=== PATIENT | female | born 1960 | race Caucasian/White ===

== ENCOUNTER 2017-02-15 19:54 | Emergency (ER) | payer OTHER ==
[2017-02-15 21:32] LABS: Hematocrit 42 % (35-47); Hemoglobin 13.4 g/dl (12.0-16.0); Mean Corpuscular HGB Conc 32 g/dl (31-36); Mean Corpuscular Hemoglobin 30 pg (27-31); Mean Corpuscular Volume 92 fL (80-97); Mean Platelet Volume 8 um3 (7.4-10.4); Red Blood Count 4.54 10^6/ul (4.0-5.4); Red Cell Distribution Width 15 % (10.5-15); White Blood Count 6.8 10^3/ul (3.5-10.8)
--- NOTE | 2017-02-15 21:52 | ED ---
Yu Dumont Rebecca, scribed for Jaz Cleary MD on 02/15/17 at 2101 . Throat Pain/Nasal Congestion - HPI Summary HPI Summary: Pt is a 56 y/o F who presents to ED c/o epistaxis. Sx began suddenly at 1730 today and has been constant since onset, resolving at approximately 2054. Sx aggravated by nothing, alleviated by compression and spontaneous resolution. Denies any nasal sores or bruising. Reports similar, but less severe, episodes weekly. Does not take any blood thinners or ASA. Denies a repeat catheterization. SHx nasal cauterization 2 years ago. PCP is Dr. Eddy. - History of Current Complaint Chief Complaint: EDEpistaxis Time Seen by Provider: 02/15/17 20:46 Hx Obtained From: Patient Onset/Duration: Sudden Onset, Lasting Hours - 3.5 hours, Resolved Associated Signs And Symptoms: Positive: Negative - Allergies/Home Medications Allergies/Adverse Reactions: Allergies Allergy/AdvReac Type Severity Reaction Status Date / Time Adhesive Tape Allergy Mild Rash Verified 02/15/17 20:03 Ciprofloxacin Allergy Itching Verified 02/15/17 20:03 PMH/Surg Hx/FS Hx/Imm Hx Endocrine/Hematology History: Reports: Hx Diabetes - borderline Cardiovascular History: Reports: Hx Hypertension - NOT ON MEDS Denies: Hx Pacemaker/ICD Musculoskeletal History: Reports: Hx Back Problems - chronic lower bacl pain Sensory History: Denies: Hx Hearing Aid Neurological History: Reports: Hx Migraine Psychiatric History: Reports: Hx Depression Denies: Hx Panic Disorder - Cancer History Cancer Type, Location and Year: ENDOMETRIAL CANCER, HYSTERECTOMY AND BSO 2004, I AND D RIGHT BREAST ABSCESS,LEFT AND RIGHT SHOULDER SURGERIES, BILATERAL CARPAL TUNNEL SURGERY - Surgical History Surgery Procedure, Year, and Place: RIGHT FOOT SURGERY(pin put in and removed 1 yr later), BILATERAL HAND SURGERY CARPAL TUNNEL RELEASE, HYSTERECTOMY, BILATERAL SHOULDER SURGERY(LT SHOULDER FRACTURE FRAGMENTS//RT SHOULDER MUSCLE REPAIR) Infectious Disease History: No Infectious Disease History: Denies: Traveled Outside the [place] in Last 30 Days - Family History Known Family History: Positive: Hypertension, Diabetes - Social History Lives: With Family - Daughter Alcohol Use: None Substance Use Type: Reports: None Hx Tobacco Use: No Smoking Status (MU): Never Smoked Tobacco Review of Systems Positive: Epistaxis - resolved, Other - Denies any nasal sores Negative: Bruising All Other Systems Reviewed And Are Negative: Yes Physical Exam - Summary Physical Exam Summary: General: Well appearing, no pain distress Skin: Warm, Skin Color Reflects Adequate Perfusion, Dry Eyes: EOMI, JAYLON ENT: Pharynx normal, TMs normal. Slight amount of dried blood in the septum. Neck: Supple, nontender Respiratory: CTA, breath sounds present, no rhonchi, no wheezes, no rales Cardiovascular: RRR, no murmur, no rub, no gallop Musculoskeletal: DANYELLE, No edema Neuro: Sensory/motor intact, A&Ox3, CN intact 2-12 Psych: Affect/mood appropriate Triage Information Reviewed: Yes Vital Signs On Initial Exam: Initial Vitals Temp Pulse Resp BP Pulse Ox 99.4 F 90 12 149/90 96 02/15/17 20:00 02/15/17 20:00 02/15/17 20:00 02/15/17 20:00 02/15/17 20:00 Vital Signs Reviewed: Yes Diagnostics - Vital Signs Vital Signs Temp Pulse Resp BP Pulse Ox 02/15/17 20:00 99.4 F 90 12 149/90 96 - Laboratory Lab Results: Lab Results 02/15/17 02/15/17 Range/Units 21:20 21:20 WBC 6.8 (3.5-10.8) 10^3/ul RBC 4.54 (4.0-5.4) 10^6/ul Hgb 13.4 (12.0-16.0) g/dl Hct 42 (35-47) % MCV 92 (80-97) fL MCH 30 (27-31) pg MCHC 32 (31-36) g/dl RDW 15 (10.5-15) % Plt Count 270 (150-450) 10^3/ul MPV 8 (7.4-10.4) um3 Neut % (Auto) 58.9 (38-83) % Lymph % (Auto) 30.5 (25-47) % Laporte % (Auto) 6.5 (1-9) % Eos % (Auto) 3.5 (0-6) % Baso % (Auto) 0.6 (0-2) % Absolute Neuts (auto) 4.0 (1.5-7.7) 10^3/ul Absolute Lymphs (auto) 2.1 (1.0-4.8) 10^3/ul Absolute Monos (auto) 0.4 (0-0.8) 10^3/ul Absolute Eos (auto) 0.2 (0-0.6) 10^3/ul Absolute Basos (auto) 0 (0-0.2) 10^3/ul Absolute Nucleated RBC 0 10^3/ul Nucleated RBC % 0 INR (Anticoag Therapy) 0.90 (0.89-1.11) Result Diagrams: 02/15/17 21:20 Lab Statement: Any lab studies that have been ordered have been reviewed, and results considered in the medical decision making process. EENT Course/Dx - Course Course Of Treatment: pt with frequent nose bleeds one per week this one last several hours more than last. No areas seen to cauterize at this time, labs done showing normal cbc and inr. Pt referred to ent, of note pt not on blood thinners - Diagnoses Provider Diagnoses: Epistaxis Discharge - Discharge Plan Condition: Stable Disposition: HOME Patient Education Materials: Nosebleed (ED) Referrals: Jarod Guevara MD [Primary Care Provider] - 3 Days (Follow up with your primary care physician in the next 3 days. ) Additional Instructions: Return to ED for any returning or worsening symptoms. The documentation as recorded by the Yu rush Rebecca accurately reflects the service I personally performed and the decisions made by me, Jaz Cleary MD.
[2017-02-15 22:00] VITALS: BP 151/95
== END 2017-02-15 21:50 | disposition home or self-care (01) ==
LOC: ED 19:54
DX: R04.0 Epistaxis (principal)
CPT/HCPCS: 36415; 85025; 85610; 99282

== ENCOUNTER 2018-01-13 13:35 | Emergency (ER) | payer OTHER ==
--- OUTSIDE RECORDS SUMMARY | 2018-01-13 14:27 | XMS REPORT ---
:1960 External Reference #:[id number] Author Organization [place] [facility] Address [address] [place] [address] Phone [phone] Care Team Providers Name Role Phone Jarod Guevara MD Care Team Information Rn Interventional Unavailable Jarod Guevara MD Primary Care Physician Unavailable Payers Type Date Identification Numbers Payment Provider Subscriber Commercial Policy Number: [id number] [employer] Brianne Dickerson PayID: [id number] [address] [address] [place] [address] Problems Date Description Provider Status Onset: 04/16/2017 Difficulty breathing Lizbeth Tuttle MD Active Onset: 04/16/2017 Benign paroxysmal positional vertigo Lizbeth Tuttle MD Active Onset: 04/16/2017 Chronic tension-type headache Lizbeth Ttutle MD Active Onset: 11/25/2015 Late effect of fracture of spine Homero Rutledge M.D. Active AND/OR trunk without spinal cord lesion Family History Date Family Member(s) Problem(s) Comments General Heart Disease General Diabetes General Cancer Father Heart Disease Father due to COPD () Father Chronic Obstructive Pulmonary Disease (COPD) Mother Valve replacements X2 Open heart surgery Siblings 4 2 , 2 sisters living Social History Type Date Description Comments Marital Status Lives With Alone Occupation Disabled depression Cigarette Use Never Smoked Cigarettes ETOH Use Denies alcohol use Smoking Patient has never smoked Recreational Drug Use Denies Drug Use Daily Caffeine Consumes on average 24oz of soda per day Exercise Type/Frequency Does not exercise Allergies, Adverse Reactions, Alerts Date Description Reaction Status Severity Comments 10/28/2014 Latex active 02/27/2017 Ciprofloxacin active 10/07/2017 Lisinopril active 10/28/2014 NKDA inactive Medications Medication Date Status Form Strength Qnty SIG Indications Ordering Provider Trazodone HCL 00/00/ Active 100mg 2 hs Unknown 0000 Methocarbamol / Active 500mg 1 q 4 Unknown 0000 hours prn Gabapentin / Active 300mg 2-3 hs Unknown 0000 or prn Centrum Silver / Active Tablets Adult 50 1 by Unknown Adult 50+ 0000 mouth every day Montelukast / Active Tablets 10mg 1 by Unknown Sodium 0000 mouth every day Meloxicam / Active Tablets 15mg 1 by Unknown 0000 mouth every day Alendronate / Active Tablets 70mg 1 tablet Unknown Sodium 0000 once weekly. Omeprazole / Active Capsules 20mg [address] mouth every day Duloxetine HCL / Active Caps DR 60mg Take 2 Unknown 0000 Part Capsule Daily Duloxetine HCL / Active Caps DR 30mg 1 by Unknown 0000 Part mouth every day Metoprolol / Active Tablets 50mg 2 by Unknown Tartrate 0000 mouth a day Hydrocodone 10/28/ Hx Tablets 5-300mg 25tabs 1-2 by Tiffani Bitartrate/Acetam 2015 - mouth Carroll, inophen 11/25/ q8hr as M.D. 2016 needed pain Has List But Did / Hx Unknown Not Bring Nor 0000 - Remember Any Meds 2015 Sertraline HCL 00/ Hx 100mg Unknown 2015 Naprosyn 00/ Hx 500mg Unknown 2015 Topiramate / Hx 100mg 1 qd Unknown - 2016 Relpax / Hx Unknown - 2015 Levocetirizine / Hx 5mg 1 qd Unknown Dihydrochloride - 2016 Topiramate / Hx Tablets 200mg 1 by Unknown 0000 - mouth a 2016 Duloxetine HCL 00/00/ Hx Caps DR 60mg 1 by Unknown 0000 - Part mouth 2016 day Duloxetine HCL 00/ Hx Caps DR 30mg 1 by Unknown 0000 - Part mouth 2016 day Naproxen / Hx Tablets 500mg 1 tablet Unknown 0000 - with by 2017 mouth twice a day Medications Administered in Office Medication Date Status Form Strength Qnty SIG Indications Ordering Provider Depomedrol Administered Injection Tiffani 40MG 017 Blaise Carroll Depomedrol Administered Injection Denisa 40MG 017 Marino RPA-C Depomedrol Administered Injection Tiffani 40MG 017 Blaise Carroll Depomedrol Administered Injection Tiffani 80MG 014 Blaise Carroll Depomedrol Administered Injection Tiffani 80MG 013 Blaise Carroll Vital Signs Date Vital Result Comment 12/17/2017 Height 64.8 inches 5'4.80" Weight 304.00 lb Heart Rate 70 /min BP Systolic Sitting 122 mmHg BP Diastolic Sitting 86 mmHg Respiratory Rate 16 /min O2 % BldC Oximetry 97 % BMI (Body Mass Index) 50.9 kg/m2 10/07/2017 Height 64.8 inches 5'4.80" Weight 307.00 lb Heart Rate 76 /min BP Systolic Sitting 124 mmHg BP Diastolic Sitting 90 mmHg Respiratory Rate 14 /min O2 % BldC Oximetry 96 % BMI (Body Mass Index) 51.4 kg/m2 Neck Circumference in inches 17 07/24/2017 Height 64.8 inches 5'4.80" Weight 309.50 lb Heart Rate 88 /min BP Systolic 134 mmHg BP Diastolic 86 mmHg BMI (Body Mass Index) 51.8 kg/m2 07/08/2017 Height 64.8 inches 5'4.80" Weight 308.00 lb BP Systolic 126 mmHg BP Diastolic 84 mmHg Respiratory Rate 20 /min Body Temperature 97.7 F Pain Level 9 BMI (Body Mass Index) 51.6 kg/m2 04/16/2017 Height 64.8 inches 5'4.80" Weight 307.00 lb Heart Rate 88 /min BP Systolic Sitting 146 mmHg BP Diastolic Sitting 90 mmHg Respiratory Rate 16 /min BMI (Body Mass Index) 51.4 kg/m2 04/10/2017 Height 64.8 inches 5'4.80" Weight 308.00 lb BP Systolic 144 mmHg BP Diastolic 79 mmHg Respiratory Rate 15 /min Pain Level 1 BMI (Body Mass Index) 51.6 kg/m2 02/27/2017 Height 64.8 inches 5'4.80" Weight 308.00 lb Heart Rate 89 /min BP Systolic 137 mmHg BP Diastolic 84 mmHg Body Temperature 98.3 F Pain Level 6 BMI (Body Mass Index) 51.6 kg/m2 11/25/2015 Height 65 inches 5'5" Weight 290.00 lb BP Systolic Sitting 138 mmHg BP Diastolic Sitting 94 mmHg Pain Level 8 BMI (Body Mass Index) 48.3 kg/m2 11/25/2014 Height 65 inches 5'5" Heart Rate 91 /min BP Systolic 158 mmHg BP Diastolic 96 mmHg 10/28/2014 Height 65 inches 5'5" Weight 318.00 lb Heart Rate 80 /min BP Systolic 179 mmHg BP Diastolic 89 mmHg BMI (Body Mass Index) 52.9 kg/m2 Results Description No Information Procedures Date CPT Code Description Status 10/11/2017 03304 Polysomnography Sleep Staging 4+ Parameters W/Cpap Completed 07/08/2017 Inject/Drain Joint/Bursa Small Completed 04/10/2017 45301 Inject Tendon Sheath Or Ligament Aponeurosis Eg Plantar Completed Fascia 02/27/2017 89353 Inject Tendon Sheath Or Ligament Aponeurosis Eg Plantar Completed Fascia 10/28/2014 71948 Rad Exam; Wrist Limited, 2 Views Completed 10/29/2013 Inject/Drain Joint/Bursa Small Completed 01/15/2013 49714 Rad Exam; Hand Comp Completed 01/15/2013 Inject/Drain Joint/Bursa Small Completed 05/09/2011 23774 Rad Exam; Both Knees, Standing Ap Completed 05/09/2011 12294 Rad Exam; Knee, Ap&L Completed Encounters Type Date Location Provider CPT E/M Dx Office Visit 12/17/2017 [facility] Jessica Wilkinson, 42131 G47.33 1:30p [facility] DNP, RN, DEODORIZER OPERATOR-BC Office Visit 10/07/2017 [facility] [place] [address] R06.83 10:15a [facility] E66.01 Office Visit 07/24/2017 4:00p [facility] [address] G44.221 R06.83 Office Visit 04/16/2017 11:00a [place] [address] G44.221 [facility] H81.10 R06.83 Office Visit 02/27/2017 1:00p [facility] Tiffani [place], 46798 M65.352 Of Jose Manuel Welsh Office Visit 11/25/2015 2:00p Neurosurgery Services Homero Rutledge, 35168 M80.88xS Of [facility] Welsh M80.88xA Office Visit 11/25/2014 3:45p [facility] Tiffani [place] 10445 842.00 Of Jose Manuel Welsh Office Visit 10/28/2014 8:45a [facility] Tiffani Carroll 44371 842.00 Of Jose Manuel Welsh 842.00 Office Visit 01/15/2013 2:15p [facility] Tiffani [place] 81988 815.00 Of Jose Manuel Welsh v54.12 719.48 Office Visit 05/09/2011 2:15p [facility] Of Lico Ulrich M.D. 20638 727.09 C.MBobo Plan of Care Future Appointment(s):02/11/2018 2:30 pm - Jessica Wilkinson DNP, RN, KELLY- at [facility]12/17/2017 - Jessica Wilkinson DNP, RN, KELLY- BCG47.33 Obstructive sleep apnea (adult) (pediatric)Comments:moderate sleep apnea with an AHI 20/hour, tRDI 89/hour, matthieu oxygen 86 %.Follow up:6 weeksRecommendations:Sleep apnea to start PAP at 14 cm Review of sleep study in detail. Review of risks of untreated sleep apnea including cardiovascular events: rhythm irregularities, heart attack, stroke; gastro esophageal reflux disease (GERD); diabetes; anxiety, depression; high blood pressure; accidents (machinery and automobile) Recommendation for PAP other treatment modalities NON-PAP including oral appliance/mandibular advancement device, positional strategies , and surgery discussed. Referral for PAPdevice to be sent to [facility] phone: [phone] Equipment appointment will take about 45 minutes, the DME provider will call you within 5 days to set you up for the device. If you do not hear from them call the Sleep Center. The mask will have a 30-day guarantee, if you have mask problems call the DME provider to have a fitting for a different mask. If you have problems with the air pressure call the sleep center and speak to a nurse.
--- NOTE | 2018-01-13 15:45 | RAD ---
HISTORY: Left ankle and foot pain COMPARISONS: March 13, 2013 VIEWS: 6, Frontal, lateral, and oblique views of the left ankle and of the left foot FINDINGS: BONE DENSITY: Normal. BONES: There is no displaced fracture. There are posterior and plantar calcaneal enthesophytes. JOINTS: There is mild osteoporosis of the tibiotalar articulation. ALIGNMENT: There is no dislocation. SOFT TISSUES: Unremarkable. OTHER FINDINGS: None. IMPRESSION: 1. HEEL SPURS 2. MILD OSTEOARTHRITIS. 3. NO ACUTE OSSEOUS INJURY TO THE LEFT FOOT OR LEFT ANKLE. IF SYMPTOMS PERSIST, RECOMMEND REPEAT IMAGING.
--- NOTE | 2018-01-13 16:22 | ED ---
Mariana Dumont Julia, scribed for Amos Ferguson on 01/13/18 at 1522 . Lower Extremity - HPI Summary HPI Summary: This patient is a 57 year old F presenting to [facility] with a chief complaint of left ankle and foot pain after walking home, across the street, from the hospital yesterday. The patient rates the pain 9/10 in severity. - History of Current Complaint Chief Complaint: EDExtremityLower Stated Complaint: LT HEEL PAIN Time Seen by Provider: 01/13/18 15:14 Hx Obtained From: Patient Mechanism Of Injury: Unknown Onset of Pain: Prior to Arrival Onset/Duration: Still Present Pain Intensity: 9 Pain Scale Used: 0-10 Numeric Timing: Constant Location: Is Discrete @ - L lateral ankle and foot Associated Signs And Symptoms: Positive: Negative Aggravating Factor(s): Ambulation - Allergies/Home Medications Allergies/Adverse Reactions: Allergies Allergy/AdvReac Type Severity Reaction Status Date / Time Adhesive Tape Allergy Rash Verified 01/13/18 13:53 ciprofloxacin [From Cipro] Allergy Rash Verified 01/13/18 13:53 lisinopril Allergy Rash And Verified 01/13/18 13:53 Itching PMH/Surg Hx/FS Hx/Imm Hx Endocrine/Hematology History: Denies: Hx Diabetes - borderline Cardiovascular History: Denies: Hx Hypertension - NOT ON MEDS, Hx Pacemaker/ICD Musculoskeletal History: Reports: Hx Back Problems - chronic lower bacl pain Sensory History: Denies: Hx Hearing Aid Neurological History: Reports: Hx Migraine Psychiatric History: Reports: Hx Depression Denies: Hx Panic Disorder - keeps eyes closed - Cancer History Cancer Type, Location and Year: ENDOMETRIAL CANCER, HYSTERECTOMY AND BSO 2004, I AND D RIGHT BREAST ABSCESS,LEFT AND RIGHT SHOULDER SURGERIES, BILATERAL CARPAL TUNNEL SURGERY - Surgical History Surgery Procedure, Year, and Place: 2 shoulder, carpel tunnel both, 2 foot surgeries, female cancer hyster.(complications) scratch infection under breast, throat. PT IS A DIFFICULT STICK- NEEDED U/S IV ACCESS, NEEDS TO BE HERE EARLY & SET UP FOR U/S IV TEAM NEXT TIME SHE IS SCHEDULED FOR CONTRAST - Immunization History Date of Influenza Vaccine: 07/2017 Immunizations Up to Date: Yes Infectious Disease History: No Infectious Disease History: Denies: Traveled Outside the [place] in Last 30 Days - Family History Known Family History: Positive: Hypertension, Diabetes - Social History Alcohol Use: None Substance Use Type: Reports: None, Prescribed Hx Tobacco Use: No Smoking Status (MU): Never Smoked Tobacco Review of Systems Negative: Fever Positive: Myalgia - L ankle/foot All Other Systems Reviewed And Are Negative: Yes Physical Exam - Summary Physical Exam Summary: Appearance: Well appearing, no pain distress Skin: warm, dry, reflects adequate perfusion Head/face: normal Eyes: EOMI, JAYLON ENT: normal Neck: supple, non-tender Respiratory: CTA, breath sounds present Cardiovascular: RRR, pulses symmetrical Abdomen: non-tender, soft Bowel: present Musculoskeletal: strength/ROM intact, tenderness to the lateral aspect of the left foot Neuro: normal, sensory motor intact, A&Ox3, no neurological deficits Triage Information Reviewed: Yes Vital Signs On Initial Exam: Initial Vitals Temp Pulse Resp BP Pulse Ox 97.3 F 74 12 141/81 93 01/13/18 13:48 01/13/18 13:48 01/13/18 13:48 01/13/18 13:48 01/13/18 13:48 Vital Signs Reviewed: Yes Diagnostics - Vital Signs Vital Signs Temp Pulse Resp BP Pulse Ox 01/13/18 13:48 97.3 F 74 12 141/81 93 - Laboratory Lab Statement: Any lab studies that have been ordered have been reviewed, and results considered in the medical decision making process. - Radiology L Foot XR Radiology Interpretation Completed By: Radiologist - 1. HEEL SPURS 2. MILD OSTEOARTHRITIS. 3. NO ACUTE OSSEOUS INJURY TO THE LEFT FOOT OR LEFT ANKLE. IF SYMPTOMS PERSIST, RECOMMEND REPEAT IMAGING. ED Physician has reviewed this report. L Ankle XR Radiology Interpretation Completed By: Radiologist - 1. HEEL SPURS 2. MILD OSTEOARTHRITIS. 3. NO ACUTE OSSEOUS INJURY TO THE LEFT FOOT OR LEFT ANKLE. IF SYMPTOMS PERSIST, RECOMMEND REPEAT IMAGING. ED Physician has reviewed this report. Re-Evaluation - Re-Evaluation 1 Re-Evaluation Time: 16:14 Comment: Results discussed with pt. Pt will be discharged. Lower Extremity Course/Dx - Course Course Of Treatment: Patient presents with eft ankle and foot pain after walking home, across the street, from the hospital yesterday. A L ankle and L foot XR are negative for fracture. Raven refuses pain medication, because she already took pain meds today. Patient is referred to an orthopedist and is discharged. - Diagnoses Differential Diagnosis/HQI/PQRI: Positive: Fracture (Closed), Strain Provider Diagnoses: Sprain of left foot Discharge - Sign-Out/Discharge Documenting (check all that apply): Discharge - Discharge Plan Condition: Stable Disposition: HOME Prescriptions: Ibuprofen TAB* [Motrin TAB* 600 MG] 600 mg PO Q8H PRN #20 tab MDD 3 PRN Reason: Pain Patient Education Materials: Ankle Sprain (ED) Referrals: Justin Quinn MD [Medical Doctor] - As Soon As Possible (Follow up with this Orthopedist.) - Billing Disposition and Condition Condition: STABLE Disposition: HOME The documentation as recorded by the Mariana rush Julia accurately reflects the service I personally performed and the decisions made by Phyllis laureano Emmanuel.
[2018-01-13 16:43] VITALS: BP 131/72
== END 2018-01-13 16:40 | disposition home or self-care (01) ==
LOC: ED 13:35
DX: S93.602A Unspecified sprain of left foot, initial encounter (principal); X58.XXXA Exposure to other specified factors, initial encounter; Y93.01 Activity, walking, marching and hiking; Y92.488 Other paved roadways as the place of occurrence of the external cause; M77.32 Calcaneal spur, left foot; M19.072 Primary osteoarthritis, left ankle and foot; R73.03 Prediabetes; G43.909 Migraine, unspecified, not intractable, without status migrainosus; F32.9 Major depressive disorder, single episode, unspecified; Z88.1 Allergy status to other antibiotic agents; Z88.8 Allergy status to other drugs, medicaments and biological substances; Z91.048 Other nonmedicinal substance allergy status
CPT/HCPCS: 99282

== ENCOUNTER 2018-05-01 20:06 | Emergency (ER) | payer OTHER ==
--- OUTSIDE RECORDS SUMMARY | 2018-05-01 20:51 | XMS REPORT ---
:1960 External Reference #:[id number] Author Organization [facility] Address [address] [place] [address] [place] [address] Phone [phone] Care Team Providers Name Role Phone Jarod Guevara MD Care Team Information Interceptor Operator Unavailable Jarod Guevara MD Primary Care Physician Unavailable Payers Type Date Identification Numbers Payment Provider Subscriber Commercial Policy Number: [id number] [employer] Medicaid Brianne Dickerson PayID: [id number] [address] [address] [place] [address] Problems Date Description Provider Status Onset: 11/25/2015 Late effect of fracture of spine Homero Rutledge M.D. 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 ASSISTANT-BC Onset: 01/17/2018 Achilles bursitis Colten Mayer MD Active Onset: 01/17/2018 Plantar fascial fibromatosis Colten Mayer MD Active Onset: 01/17/2018 Peroneal tendinitis Colten Mayer MD Active Family History Date Family Member(s) Problem(s) Comments [...] active 02/27/2017 Ciprofloxacin active 10/07/2017 Lisinopril active 01/17/2018 Tape active 10/28/2014 NKDA inactive Medications Medication Date Status Form Strength Qnty SIG Indications Ordering Provider Trazodone HCL 00/ Active 100mg 2 hs Unknown 0000 Methocarbamol [...] - Remember Any Meds 2015 Sertraline HCL 00/00/ Hx 100mg Unknown - 2015 Naprosyn /00/ Hx 500mg Unknown - 2015 Topiramate 00/ Hx 100mg 1 qd Unknown 0000 - 2016 Relpax 00/ Hx Unknown 0000 - 2015 Levocetirizine / Hx 5mg 1 qd Unknown Dihydrochloride 0000 - 2016 Topiramate / Hx Tablets 200mg 1 by Unknown 0000 - mouth a 2016 Duloxetine HCL / Hx Caps DR 60mg 1 by Unknown 0000 - Part mouth 2016 day Duloxetine HCL / Hx Caps DR 30mg 1 by Unknown 0000 - Part mouth 2016 day Naproxen / Hx Tablets 500mg 1 tablet Unknown 0000 - with food by 2017 mouth twice a day Medications Administered in Office Medication Date Status Form Strength Qnty SIG Indications Ordering Provider Depomedrol Administered Injection Tiffani 40MG 017 Blaise Carroll Depomedrol Administered Injection Denisa 40MG 017 MADELIN Pichardo Depomedrol Administered Injection Tiffani 40MG 017 Blaise Carroll Depomedrol Administered Injection Tiffani 80MG 014 Blaise Carroll Depomedrol Administered Injection Tiffani 80MG 013 Blaise Carroll Vital Signs Date Vital Result Comment 04/16/2018 Height 64 inches 5'4" Heart Rate 77 /min BP Systolic 128 mmHg BP Diastolic 80 mmHg Respiratory Rate 16 /min Body Temperature 98.0 F Pain Level 4 02/14/2018 Height 64 inches 5'4" Weight 305.00 lb Heart Rate 76 /min Respiratory Rate 14 /min Body Temperature 98.9 F BMI (Body Mass Index) 52.3 kg/m2 02/11/2018 Height 64 inches 5'4" Weight 295.00 lb Heart Rate 76 /min BP Systolic Sitting 138 mmHg Lue large cuff BP Diastolic Sitting 84 mmHg Lue large cuff Respiratory Rate 20 /min O2 % BldC Oximetry 96 % On Ra BMI (Body Mass Index) 50.6 kg/m2 01/17/2018 Height 64 inches 5'4" Weight 305.00 lb BP Systolic 134 mmHg BP Diastolic 80 mmHg Respiratory Rate 18 /min Body Temperature 98.4 F Pain Level 8 BMI (Body Mass Index) 52.3 kg/m2 12/17/2017 Height 64.8 inches 5'4.80" Weight 304.00 [...] Procedures Date CPT Code Description Status 10/11/2017 32943 Polysomnography Sleep Staging 4+ Parameters W/Cpap Completed 07/08/2017 Inject/Drain Joint/Bursa Small W/O US Completed 04/10/2017 23233 Inject Tendon Sheath Or Ligament Aponeurosis Eg Plantar Completed Fascia 02/27/2017 10665 Inject Tendon Sheath Or Ligament Aponeurosis Eg Plantar Completed Fascia 10/28/2014 44120 Rad Exam; Wrist Limited, 2 Views Completed 10/29/2013 Inject/Drain Joint/Bursa Small W/O US Completed 01/15/2013 25131 Rad Exam; Hand Comp Completed 01/15/2013 Inject/Drain Joint/Bursa Small W/O US Completed 05/09/2011 96707 Rad Exam; Both Knees, Standing Ap Completed 05/09/2011 73126 Rad Exam; Knee, Ap&L Completed Encounters Type Date Location Provider CPT E/M Dx Office Visit 02/14/2018 2:15p [facility] [address] M76.72 C.M.A. M76.62 M72.2 Office Visit 02/11/2018 2:30p [facility] Jessica Wilkinson 77137 G47.33 Services Of Vanesa MORENO RN, [facility] Z68.43 Office Visit 01/17/2018 1:00p [facility] [place] [address] M76.72 C.M.A. M76.62 M72.2 Office Visit 12/17/2017 1:30p [facility] Jessica Wilkinson 81547 G47.33 Services Of Vanesa MORENO RN, PASTRY ASSISTANT-JORGE LUIS E66.01 Z68.43 Office Visit 10/07/2017 10:15a [facility] [place] [address] R06.83 Services Of Vanesa E66.01 Office Visit 07/24/2017 4:00p [facility] [address] G44.221 R06.83 Office Visit 04/16/2017 11:00a [facility] [place] [address] G44.221 Services Of Vanesa H81.10 R06.83 Office Visit 02/27/2017 1:00p [facility] Services Tiffani Carroll 20108 M65.352 Of C.M.A. MKelly Office Visit 11/25/2015 2:00p Neurosurgery Services Homero Rutledge, 94498 M80.88xS Of Vanesa Welsh M80.88xA Office Visit 11/25/2014 3:45p [facility] Services Tiffani Carroll, 16209 842.00 Of Jose Manuel Welsh Office Visit 10/28/2014 8:45a [facility] Tiffani Carroll 02951 842.00 Of Jose Manuel Welsh 842.00 Office Visit 01/15/2013 2:15p [facility] Tiffani Carroll, 15279 815.00 Of Jose Manuel Welsh v54.12 719.48 Office Visit 05/09/2011 2:15p [facility] Of Lico Ulrich M.D. 47385 727.09 Jose Manuel Plan of Care 02/14/2018 - Colten Mayer, MDM76.72 Peroneal tendinitis, left legM76.62 Achilles tendinitis, left legFollow up:Follow Up: 2 [id number] Plantar fascial fibromatosis
--- OUTSIDE RECORDS SUMMARY | 2018-05-01 20:51 | XMS REPORT ---
:1960 External Reference #:[id number] Author Organization [facility] Address [address] [place] [address] Phone [phone] Care Team Providers Name Role Phone Jarod Guevara MD Primary Care Physician Unavailable Payers Type Date Identification Numbers Payment Provider Subscriber Commercial Policy Number: [id number] [employer] Medicaid Brianne Dickerson PayID: [id number] [address] [address] [place] [address] Problems Date Description Provider Status Onset: 11/25/2015 Late effect of fracture of spine Homero Rutledge M.D. 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 Onset: 01/17/2018 Achilles bursitis Colten Mayer MD [...] 00/00/ Hx 100mg Unknown - 2015 Naprosyn / Hx 500mg Unknown - 2015 Topiramate / Hx 100mg 1 qd Unknown 0000 - 2016 Relpax / Hx Unknown - 2015 Levocetirizine 00/00/ Hx 5mg 1 qd Unknown Dihydrochloride 0000 [...] Carroll Vital Signs Date Vital Result Comment 04/17/2018 Height 64 inches 5'4" Weight 294.00 lb Heart Rate 92 /min Respiratory Rate 22 /min Body Temperature 98.2 F Pain Level 0 stiffness BMI (Body Mass Index) 50.5 kg/m2 04/16/2018 Height 64 inches 5'4" Heart Rate [...] Procedures Date CPT Code Description Status 10/11/2017 20185 Polysomnography Sleep Staging 4+ Parameters W/Cpap Completed 07/08/2017 Inject/Drain Joint/Bursa Small W/O US Completed 04/10/2017 48550 Inject Tendon Sheath Or Ligament Aponeurosis Eg Plantar Completed Fascia 02/27/2017 45684 Inject Tendon Sheath Or Ligament Aponeurosis Eg Plantar Completed Fascia 10/28/2014 06222 Rad Exam; Wrist Limited, 2 Views Completed 10/29/2013 Inject/Drain Joint/Bursa Small W/O US Completed 01/15/2013 50834 Rad Exam; Hand Comp Completed 01/15/2013 Inject/Drain Joint/Bursa Small W/O US Completed 05/09/2011 13380 Rad Exam; Both Knees, Standing Ap Completed 05/09/2011 91906 Rad Exam; Knee, Ap&L Completed Encounters Type Date Location Provider CPT E/M Dx Office Visit 02/14/2018 2:15p [facility] [address] M76.72 C.M.A. M76.62 M72.2 Office Visit 02/11/2018 2:30p [facility] Sleep Jessica Wilkinson 69928 G47.33 Services Of Vanesa MORENO RN, [facility] Z68.43 Office Visit 01/17/2018 1:00p [facility] [address] M76.72 C.M.A. M76.62 M72.2 Office Visit 12/17/2017 1:30p [facility] Sleep Jessica Wilkinson 89914 G47.33 Services Of Vanesa MORENO RN, KELLYJORGE LUIS E66.01 Z68.43 Office Visit 10/07/2017 10:15a [facility] [place] [address] R06.83 Services Of Vanesa E66.01 Office Visit 07/24/2017 4:00p [facility] [address] G44.221 R06.83 Office Visit 04/16/2017 11:00a [facility] [place] [address] G44.221 Services Of Vanesa H81.10 R06.83 Office Visit 02/27/2017 1:00p Orthopedic Services Tiffani Carroll, 94607 M65.352 Of Jose Manuel Welsh Office Visit 11/25/2015 2:00p Neurosurgery Services Homero Rutledge, 42448 M80.88xS Of Vanesa Welsh M80.88xA Office Visit 11/25/2014 3:45p Orthopedic Services Tiffani Carroll 75658 842.00 Of Jose Manuel Welsh Office Visit 10/28/2014 8:45a Orthopedic Services Tiffani Carroll 11365 842.00 Of Jose Manuel Welsh 842.00 Office Visit 01/15/2013 2:15p [facility] Services Tiffani Carroll 81829 815.00 Of Jose Manuel Welsh v54.12 719.48 Office Visit 05/09/2011 2:15p Orthopedic Services Of Lico Ulrich M.D. 95894 727.09 [email or web address] Plan of Care 02/14/2018 - Colten Mayer, MDM76.72 Peroneal tendinitis, left legM76.62 Achilles tendinitis, left legFollow up:Follow Up: 2 eyxhszP24.2 Plantar fascial fibromatosis
[2018-05-01] MEDS ORDERED: Lidocaine 2% VISCOUS* 15 ML UDC PO ONE (21:21)
--- NOTE | 2018-05-01 22:00 | ED ---
Throat Pain/Nasal Congestion - HPI Summary HPI Summary: Complains of eating a hot burrito today at 5 PM and subsequent throat pain. Patient states she ejected food bolus prior to actually swallowing. Denies shortness of breath or oral swelling. - History of Current Complaint Chief Complaint: EDThroatPain Time Seen by Provider: 05/01/18 20:31 Hx Obtained From: Patient Severity: Moderate Associated Signs And Symptoms: Positive: Dysphagia Cough: None - Allergies/Home Medications Allergies/Adverse Reactions: Allergies Allergy/AdvReac Type Severity Reaction Status Date / Time Adhesive Tape Allergy Rash Verified 05/01/18 20:09 ciprofloxacin [From Cipro] Allergy Rash Verified 05/01/18 20:09 lisinopril Allergy Rash And Verified 05/01/18 20:09 Itching PMH/Surg Hx/FS Hx/Imm Hx Endocrine/Hematology History: Denies: Hx Diabetes - borderline Cardiovascular History: Denies: Hx Hypertension - NOT ON MEDS, Hx Pacemaker/ICD Musculoskeletal History: Reports: Hx Back Problems - chronic lower bacl pain Sensory History: Denies: Hx Hearing Aid Neurological History: Reports: Hx Migraine Psychiatric History: Reports: Hx Depression Denies: Hx Panic Disorder - keeps eyes closed - Cancer History Cancer Type, Location and Year: ENDOMETRIAL CANCER, HYSTERECTOMY AND BSO 2004, I AND D RIGHT BREAST ABSCESS,LEFT AND RIGHT SHOULDER SURGERIES, BILATERAL CARPAL TUNNEL SURGERY - Surgical History Surgery Procedure, Year, and Place: 2 shoulder, carpel tunnel both, 2 foot surgeries, female cancer hyster.(complications) scratch infection under breast, throat. PT IS A DIFFICULT STICK- NEEDED U/S IV ACCESS, NEEDS TO BE HERE EARLY & SET UP FOR U/S IV TEAM NEXT TIME SHE IS SCHEDULED FOR CONTRAST - Immunization History Date of Influenza Vaccine: 07/2017 Infectious Disease History: No Infectious Disease History: Denies: Traveled Outside the [place] in Last 30 Days - Family History Known Family History: Positive: Hypertension, Diabetes - Social History Alcohol Use: None Substance Use Type: Reports: None Hx Tobacco Use: No Smoking Status (MU): Never Smoked Tobacco Review of Systems Constitutional: Negative Eyes: Negative Positive: Sore Throat Cardiovascular: Negative Respiratory: Negative Gastrointestinal: Negative Genitourinary: Negative Musculoskeletal: Negative Skin: Negative Neurological: Negative Psychological: Normal All Other Systems Reviewed And Are Negative: Yes Physical Exam - Summary Physical Exam Summary: Mild oropharyngeal erythema. No evidence of burn tissue or swelling, Triage Information Reviewed: Yes Vital Signs On Initial Exam: Initial Vitals Temp Pulse Resp BP Pulse Ox 98.2 F 95 18 155/92 96 05/01/18 20:09 05/01/18 20:09 05/01/18 20:09 05/01/18 20:09 05/01/18 20:09 Vital Signs Reviewed: Yes Appearance: Positive: Well-Appearing Skin: Positive: Warm Head/Face: Positive: Normal Head/Face Inspection Eyes: Positive: Normal ENT: Positive: Pharyngeal erythema, Uvula midline. Negative: Tonsillar swelling , Tonsillar exudate, Trismus Neck: Positive: Supple Respiratory/Lung Sounds: Positive: Clear to Auscultation Cardiovascular: Positive: Normal Abdomen Description: Positive: Nontender Musculoskeletal: Positive: Normal Neurological: Positive: Normal Psychiatric: Positive: Normal AVPU Assessment: Alert - [place] Coma Scale Best Eye Response: 4 - Spontaneous Best Motor Response: 6 - Obeys Commands Best Verbal Response: 5 - Oriented Coma Scale Total: 15 Diagnostics - Vital Signs Vital Signs Temp Pulse Resp BP Pulse Ox 05/01/18 20:09 98.2 F 95 18 155/92 96 - Laboratory Lab Statement: Any lab studies that have been ordered have been reviewed, and results considered in the medical decision making process. Re-Evaluation - Re-Evaluation 1 Re-Evaluation Time: 23:59 Comment: Pain improved with viscous lidocaine. EENT Course/Dx - Course Course Of Treatment: Complains of eating a hot burrito today at 5 PM and subsequent throat pain. Patient states she ejected food bolus prior to actually swallowing. Denies shortness of breath or oral swelling. PE: Mild oropharyngeal erythema. No evidence of burn tissue or swelling,. PLAN: Patient resolved with viscous lidocaine. Refuses prescription for lidocaine. Follow-up with primary care - Diagnoses Provider Diagnoses: Sore throat Discharge - Sign-Out/Discharge Documenting (check all that apply): Patient Departure - Discharge Plan Condition: Stable Disposition: HOME Patient Education Materials: Foreign Body Ingestion (ED) Referrals: Jarod Guevara MD [Primary Care Provider] - Additional Instructions: Follow-up with primary care. Return to the ED for any new or worsening symptoms - Billing Disposition and Condition Condition: STABLE Disposition: Home
[2018-05-01 22:22] VITALS: BP 147/88
== END 2018-05-01 22:19 | disposition home or self-care (01) ==
LOC: ED 20:06
DX: J02.9 Acute pharyngitis, unspecified (principal); Z88.8 Allergy status to other drugs, medicaments and biological substances; Z88.3 Allergy status to other anti-infective agents
CPT/HCPCS: 99281